=== PATIENT | male | born 1930 | race Hispanic/Latino ===

== ENCOUNTER 2018-02-17 10:22 | Inpatient (IN) | payer OTHER, MEDICARE ==
[2018-02-17] MEDS: MethylPREDNISolone 40 mg Vial IVP SCH (16:30)
[2018-02-17] MEDS: Albuterol-Ipratrop 3 mg / 0.5 (3 ml) UD INH SCH (19:14)
[2018-02-17] MEDS ORDERED: CEFEPIME IV SCH (21:00)
[2018-02-17] MEDS ORDERED: NS IV SCH (21:00)
[2018-02-17] MEDS: Cefepime 1 GM in Sodium Chloride 0.9% 100 ML IVPB SCH (22:34)
[2018-02-18] MEDS: Albuterol-Ipratrop 3 mg / 0.5 (3 ml) UD INH SCH ×4 (01:39→19:08)
[2018-02-18] MEDS: Enoxaparin 40 mg Syringe SC SCH (09:04)
[2018-02-18] MEDS: Cefepime 1 GM in Sodium Chloride 0.9% 100 ML IVPB SCH ×2 (09:05→22:23)
--- NOTE | 2018-02-18 10:45 | CP.PCM.HP ---
History of Present Illness - History of Present Illness History of Present Illness: 87 y/o male with hx of HTN, BPH, COPD presented in ER with c/o of chills, rigor , fever,sputum production and SOB with dyspnea on exertion generalized weakness and malaise. In ER the blood pressure was elevated with systolic of 190, T<102 a CXR reveled an infiltrate. As per home meds list he was on avelox. Patient initially sign AMA. Eventually he accept to be admitted in the hospital for his condition. He well responded to rx. Patient admitted in TCU for further rx and PT. Present on Admission - Present on Admission Any Indicators Present on Admission: No Review of Systems - Constitutional Constitutional: As Per HPI - EENT Eyes: As Per HPI Nose/Mouth/Throat: As Per HPI - Respiratory Respiratory: Cough, Chest Congestion - Gastrointestinal Gastrointestinal: As Per HPI - Musculoskeletal Musculoskeletal: As Per HPI - Neurological Neurological: As Per HPI - Psychiatric Psychiatric: As Per HPI - Endocrine Endocrine: As Per HPI Past Patient History - Past Medical History & Family History Past Medical History?: Yes - Past Social History Smoking Status: Former Smoker - CARDIAC Hx Hypertension: Yes - PULMONARY Hx Pneumonia: Yes - HEMATOLOGICAL/ONCOLOGICAL Hx AIDS: No Hx Human Immunodeficiency Virus (HIV): No - INTEGUMENTARY Other/Comment: melanoma - MUSCULOSKELETAL/RHEUMATOLOGICAL Hx Falls: Yes - GENITOURINARY/GYNECOLOGICAL Hx Prostate Problems: Yes - PSYCHIATRIC Hx Substance Use: No - SURGICAL HISTORY Hx Surgeries: No - ANESTHESIA Hx Anesthesia: No Meds Allergies/Adverse Reactions: Allergies Allergy/AdvReac Type Severity Reaction Status Date / Time No Known Allergies Allergy Verified 02/17/18 10:52 Physical Exam - Constitutional Appears: No Acute Distress - Head Exam Head Exam: ATRAUMATIC, NORMAL INSPECTION, NORMOCEPHALIC - Eye Exam Eye Exam: Normal appearance - ENT Exam ENT Exam: Mucous Membranes Moist - Neck Exam Neck exam: Positive for: Normal Inspection - Respiratory Exam Respiratory Exam: Rhonchi - Cardiovascular Exam Cardiovascular Exam: REGULAR RHYTHM, +S1, +S2 - GI/Abdominal Exam GI & Abdominal Exam: Normal Bowel Sounds, Soft - Back Exam Back exam: NORMAL INSPECTION - Neurological Exam Neurological exam: Alert, CN II-XII Intact, Normal Gait, Oriented x3 - Psychiatric Exam Psychiatric exam: Normal Mood Results - Vital Signs Recent Vital Signs: Last Vital Signs Temp 97.9 F 02/18/18 08:20 Pulse 84 02/18/18 09:44 Resp 20 02/18/18 08:20 BP 136/84 02/18/18 09:44 Pulse Ox 96 02/18/18 09:44 Assessment & Plan (1) Pneumonia Status: Acute (2) BPH (benign prostatic hyperplasia) Status: Chronic (3) COPD (chronic obstructive pulmonary disease) Status: Chronic (4) HTN (hypertension) Status: Chronic (5) Hypertensive cardiovascular disease Status: Chronic - Assessment and Plan (Free Text) Plan: Continue present rx
[2018-02-18] MEDS: MethylPREDNISolone 40 mg Vial IVP SCH (16:00)
[2018-02-19] MEDS: Albuterol-Ipratrop 3 mg / 0.5 (3 ml) UD INH SCH ×4 (01:00→19:33)
[2018-02-19 07:05] LABS: BLOOD UREA NITROGEN 26 mg/dl (9-20); CALCIUM 8.4 mg/dL (8.4-10.2); GFR AFRICAN-AMERICAN > 60; GFR NON-AFRICAN AMERICAN > 60
[2018-02-19 07:19] LABS: BASO % 0.2 % (0.0-2.0); HEMOGLOBIN 11.8 g/dL (12.0-18.0); MEAN CELL VOLUME 90.3 fl (80.0-94.0); MEAN CORPUSCULAR HEMOGLOBIN 30.3 pg (27.0-31.0); MEAN CORPUSCULAR HGB CONC 33.6 g/dL (33.0-37.0); MEAN PLATELET VOLUME 9.5 fl (7.2-11.7); MONO # 0.5 K/uL (0.0-0.8); MONO % 6.6 % (0.0-10.0); NEUT # 6.5 K/uL (1.8-7.0); NEUT % 80.2 % (50.0-75.0); RBC 3.88 Mil/uL (4.40-5.90); RED CELL DISTRIBUTION WIDTH 13.3 % (11.5-14.5); WHITE BLOOD COUNT 8.1 K/uL (4.8-10.8)
[2018-02-19] MEDS: Enoxaparin 40 mg Syringe SC SCH (09:20)
[2018-02-19] MEDS: Cefepime 1 GM in Sodium Chloride 0.9% 100 ML IVPB SCH ×2 (09:58→21:12)
--- NOTE | 2018-02-19 13:22 | CP.PCM.PN ---
Subjective - Date & Time of Evaluation Date of Evaluation: 02/19/18 Time of Evaluation: 13:22 - Subjective Subjective: Comfortable not in distress Objective - Vital Signs/Intake and Output Vital Signs (last 24 hours): Temp Pulse Resp BP Pulse Ox 97.5 F L 89 18 162/80 H 97 02/19/18 10:00 02/19/18 10:00 02/19/18 10:00 02/19/18 10:00 02/19/18 10:00 - Medications Medications: Current Medications Acetaminophen (Tylenol 325mg Tab) 650 mg PO Q6 PRN PRN Reason: Fever >100.4 F Albuterol/Ipratropium (Duoneb 3 Mg/0.5 Mg (3 Ml) Ud) 3 ml INH RQ6 [facility] Last Admin: 02/19/18 13:18 Dose: 3 ml Amlodipine Besylate (Norvasc) 2.5 mg PO DAILY [facility] Last Admin: 02/19/18 09:21 Dose: 2.5 mg Docusate Sodium (Colace) 100 mg PO BID [facility] Last Admin: 02/19/18 09:21 Dose: 100 mg Enoxaparin Sodium (Lovenox) 40 mg SC DAILY [facility] PRN Reason: Protocol Last Admin: 02/19/18 09:20 Dose: 40 mg Folic Acid (Folic Acid) 1 mg PO DAILY [facility] Last Admin: 02/19/18 09:20 Dose: 1 mg Cefepime HCl 1 gm/ Sodium (Chloride) 100 mls @ 100 mls/hr IVPB Q12 [facility] Last Admin: 02/19/18 09:58 Dose: 100 mls/hr Methylprednisolone (Solu-Medrol) 40 mg IVP Q24H [facility] Last Admin: 02/18/18 16:00 Dose: 40 mg Tamsulosin HCl (Flomax) 0.4 mg PO HS [facility] Last Admin: 02/18/18 22:23 Dose: 0.4 mg - Labs Labs: 02/19/18 06:00 02/19/18 06:00 - Constitutional Appears: No Acute Distress - Head Exam Head Exam: ATRAUMATIC, NORMAL INSPECTION, NORMOCEPHALIC - Eye Exam Eye Exam: Normal appearance - Neck Exam Neck Exam: Full ROM - Respiratory Exam Respiratory Exam: Clear to Ausculation Bilateral - Cardiovascular Exam Cardiovascular Exam: REGULAR RHYTHM, +S1, +S2 - GI/Abdominal Exam GI & Abdominal Exam: Soft, Normal Bowel Sounds - Extremities Exam Extremities Exam: Full ROM - Neurological Exam Neurological Exam: Alert, Awake, CN II-XII Intact, Oriented x3 - Psychiatric Exam Psychiatric exam: Normal Affect Assessment and Plan (1) Pneumonia Status: Acute (2) BPH (benign prostatic hyperplasia) Status: Chronic (3) COPD (chronic obstructive pulmonary disease) Status: Chronic (4) HTN (hypertension) Status: Chronic (5) Hypertensive cardiovascular disease Status: Chronic - Assessment and Plan (Free Text) Plan: Continue present rx
[2018-02-19 20:38] LABS: ALBUMIN 2.8 g/dL (3.5-5.0); BILIRUBIN,DIRECT 0.3 mg/ml (0.0-0.4)
[2018-02-20] MEDS: Albuterol-Ipratrop 3 mg / 0.5 (3 ml) UD INH SCH ×4 (01:08→19:48)
[2018-02-20] MEDS ORDERED: predniSONE 5 mg/5 mL Oral Soln UD PO SCH (09:00)
[2018-02-20] MEDS: Enoxaparin 40 mg Syringe SC SCH (09:14)
[2018-02-20] MEDS: Cefepime 1 GM in Sodium Chloride 0.9% 100 ML IVPB SCH ×2 (09:46→21:56)
--- NOTE | 2018-02-20 14:48 | CARD ---
APPROVED REPORT EKG Measurement Heart [id number] DC [id number] <Conclusion> Sinus rhythm with premature atrial complexes Otherwise normal ECG
--- NOTE | 2018-02-20 15:03 | CP.PCM.PN ---
Subjective - Date & Time of Evaluation Date of Evaluation: 02/20/18 Time of Evaluation: 15:03 - Subjective Subjective: Patient comfortable. Had an episode of tachycardia on exertion. Will repeat CXR and labs in AM Objective - Vital Signs/Intake and Output Vital Signs (last 24 hours): Temp Pulse Resp BP Pulse Ox 97.0 F L 92 H 18 143/75 99 02/20/18 08:06 02/20/18 09:14 02/20/18 08:06 02/20/18 09:14 02/20/18 08:06 - Medications Medications: Current Medications Acetaminophen (Tylenol 325mg Tab) 650 mg PO Q6 PRN PRN Reason: Fever >100.4 F Albuterol/Ipratropium (Duoneb 3 Mg/0.5 Mg (3 Ml) Ud) 3 ml INH RQ6 [facility] Last Admin: 02/20/18 13:20 Dose: 3 ml Amlodipine Besylate (Norvasc) 2.5 mg PO DAILY [facility] Last Admin: 02/20/18 09:14 Dose: 2.5 mg Docusate Sodium (Colace) 100 mg PO BID [facility] Last Admin: 02/20/18 09:13 Dose: 100 mg Enoxaparin Sodium (Lovenox) 40 mg SC DAILY [facility] PRN Reason: Protocol Last Admin: 02/20/18 09:14 Dose: 40 mg Folic Acid (Folic Acid) 1 mg PO DAILY [facility] Last Admin: 02/20/18 09:13 Dose: 1 mg Cefepime HCl 1 gm/ Sodium (Chloride) 100 mls @ 100 mls/hr IVPB Q12 [facility] Last Admin: 02/20/18 09:46 Dose: 100 mls/hr Lactobacillus Acidophilus (Bacid Acidophilus) 1 cap PO BID [facility] Prednisone (Prednisone Tab) 20 mg PO DAILY [facility] Tamsulosin HCl (Flomax) 0.4 mg PO HS [facility] Last Admin: 02/19/18 21:12 Dose: 0.4 mg - Labs Labs: 02/19/18 06:00 02/19/18 06:00 - Constitutional Appears: Non-toxic - Head Exam Head Exam: ATRAUMATIC, NORMAL INSPECTION, NORMOCEPHALIC - Eye Exam Eye Exam: Normal appearance - ENT Exam ENT Exam: Mucous Membranes Moist - Neck Exam Neck Exam: Full ROM - Respiratory Exam Respiratory Exam: Clear to Ausculation Bilateral - Cardiovascular Exam Cardiovascular Exam: REGULAR RHYTHM, +S1, +S2 - GI/Abdominal Exam GI & Abdominal Exam: Soft, Normal Bowel Sounds - Extremities Exam Extremities Exam: Normal Inspection - Neurological Exam Neurological Exam: Alert, Awake, Oriented x3 - Psychiatric Exam Psychiatric exam: Normal Affect - Skin Skin Exam: Normal Color Assessment and Plan (1) Pneumonia Status: Acute (2) BPH (benign prostatic hyperplasia) Status: Chronic (3) COPD (chronic obstructive pulmonary disease) Status: Chronic (4) HTN (hypertension) Status: Chronic (5) Hypertensive cardiovascular disease Status: Chronic - Assessment and Plan (Free Text) Plan: Continue present rx.
[2018-02-20] MEDS: Lactobacillus Acidophilus 500 MU Cap PO SCH (16:34)
[2018-02-20 17:05] VITALS: RESP 20
[2018-02-21] MEDS: Albuterol-Ipratrop 3 mg / 0.5 (3 ml) UD INH SCH ×4 (01:10→19:23)
[2018-02-21 06:38] LABS: BASO % 0.1 % (0.0-2.0); EOS # 0.1 K/uL (0.0-0.7); EOS % 1.6 % (0.0-4.0); HEMOGLOBIN 11.4 g/dL (12.0-18.0); LYMPH % 26.2 % (20.0-40.0); MEAN CELL VOLUME 90.8 fl (80.0-94.0); MEAN CORPUSCULAR HEMOGLOBIN 30.6 pg (27.0-31.0); MEAN CORPUSCULAR HGB CONC 33.7 g/dL (33.0-37.0); MEAN PLATELET VOLUME 8.8 fl (7.2-11.7); MONO # 0.6 K/uL (0.0-0.8); MONO % 8.4 % (0.0-10.0); NEUT # 4.8 K/uL (1.8-7.0); NEUT % 63.7 % (50.0-75.0); RBC 3.72 Mil/uL (4.40-5.90); RED CELL DISTRIBUTION WIDTH 13.2 % (11.5-14.5); WHITE BLOOD COUNT 7.6 K/uL (4.8-10.8)
[2018-02-21 07:25] LABS: BLOOD UREA NITROGEN 22 mg/dl (9-20); CALCIUM 8.1 mg/dL (8.4-10.2); GFR AFRICAN-AMERICAN > 60; GFR NON-AFRICAN AMERICAN > 60
[2018-02-21] MEDS: Enoxaparin 40 mg Syringe SC SCH (08:08)
[2018-02-21] MEDS: Lactobacillus Acidophilus 500 MU Cap PO SCH ×2 (08:09→17:10)
[2018-02-21] MEDS: Cefepime 1 GM in Sodium Chloride 0.9% 100 ML IVPB SCH ×2 (11:12→21:04)
--- NOTE | 2018-02-21 12:41 | RAD ---
HISTORY: f/u pneumonia COMPARISON: No prior. TECHNIQUE: Chest PA and lateral FINDINGS: LUNGS: Patchy airspace disease or atelectasis is identified cephalad to the minor fissure laterally with limited linear atelectasis or fibrosis identified in the left base. Flattened hemidiaphragms and increased anteroposterior chest diameter may indicate an element of COPD. Clinically correlate further. PLEURA: Blunting of the right costophrenic sulcus and obscuring at the left may indicate small bilateral pleural effusions or fibrosis. No prior comparison available. CARDIOVASCULAR: Questionable cardiomegaly versus technical magnification. No pulmonary vascular derangement to suggest active CHF. OSSEOUS STRUCTURES: A kyphotic thoracic spinal deformity appreciated due to multiple mild mid to inferior thoracic spine compression fractures which are of indeterminate age but may be chronic. VISUALIZED UPPER ABDOMEN: Normal. OTHER FINDINGS: None. IMPRESSION: Trace infiltrate or atelectasis is seen in at the right upper lobe abutting the minor fissure with limited bilateral pleural effusions or fibrosis blunting the costophrenic sulci bilaterally. Potential COPD as well.
[2018-02-22] MEDS: Albuterol-Ipratrop 3 mg / 0.5 (3 ml) UD INH SCH ×4 (01:00→19:23)
[2018-02-22] MEDS: Enoxaparin 40 mg Syringe SC SCH (08:25)
[2018-02-22] MEDS: Lactobacillus Acidophilus 500 MU Cap PO SCH ×2 (08:28→16:28)
[2018-02-22] MEDS: Cefepime 1 GM in Sodium Chloride 0.9% 100 ML IVPB SCH ×2 (08:29→20:48)
--- NOTE | 2018-02-22 17:28 | CP.PCM.PN ---
Subjective - Date & Time of Evaluation Date of Evaluation: 02/22/18 Time of Evaluation: 12:00 - Subjective Subjective: Patient seen and examined at bedside. Seen by hospitalist at request of Dr. Acevedo. States that he feels well. No further issues with shortness of breath with exertion. Objective - Vital Signs/Intake and Output Vital Signs (last 24 hours): Temp Pulse Resp BP Pulse Ox 97.2 F L 86 20 131/69 99 02/22/18 16:29 02/22/18 16:29 02/22/18 16:29 02/22/18 16:29 02/22/18 16:29 - Medications Medications: Current Medications Acetaminophen (Tylenol 325mg Tab) 650 mg PO Q6 PRN PRN Reason: Fever >100.4 F Albuterol/Ipratropium (Duoneb 3 Mg/0.5 Mg (3 Ml) Ud) 3 ml INH RQ6 [facility] Last Admin: 02/22/18 13:25 Dose: 3 ml Amlodipine Besylate (Norvasc) 2.5 mg PO DAILY [facility] Last Admin: 02/22/18 08:26 Dose: 2.5 mg Docusate Sodium (Colace) 100 mg PO BID [facility] Last Admin: 02/22/18 16:29 Dose: 100 mg Enoxaparin Sodium (Lovenox) 40 mg SC DAILY [facility] PRN Reason: Protocol Last Admin: 02/22/18 08:25 Dose: 40 mg Folic Acid (Folic Acid) 1 mg PO DAILY [facility] Last Admin: 02/22/18 08:26 Dose: 1 mg Cefepime HCl 1 gm/ Sodium (Chloride) 100 mls @ 100 mls/hr IVPB Q12 [facility] Last Admin: 02/22/18 08:29 Dose: 100 mls/hr Lactobacillus Acidophilus (Bacid Acidophilus) 1 cap PO BID [facility] Last Admin: 02/22/18 16:28 Dose: 1 cap Prednisone (Prednisone Tab) 10 mg PO DAILY [facility] Last Admin: 02/22/18 08:26 Dose: 10 mg Tamsulosin HCl (Flomax) 0.4 mg PO HS [facility] Last Admin: 02/21/18 21:04 Dose: 0.4 mg - Labs Labs: 02/21/18 05:50 02/21/18 05:50 - Additional Findings Additional findings: Physical exam: Constitutional- cooperative, awake, alert Head- NCAT, PERRL Eye- PERRL, EOMI ENT- normal exam, MMM. Neck- normal inspection, supple, no JVD Respiratory- CTAB, no wheezes rales rhonchi Cardiovascular- RRR, +S1, +S2 no MRG GI/Abdominal- normal bowel sounds, soft, no mass, no hsm Skin- warm, dry Extremities Exam- normal capillary refill, normal inspection Neurological Exam- alert, awake, oriented Psych- normal mood, normal affect Assessment and Plan - Assessment and Plan (Free Text) Plan: Assessment and Plan (1) Pneumonia Status: Acute Continue PT/OT in TCU Total 14 days of Cefepime Bacid for C diff prophylaxis (2) BPH (benign prostatic hyperplasia) Status: Chronic - Continue Flomax 0.4 mg po HS (3) COPD (chronic obstructive pulmonary disease) Status: Chronic - Incentive spirometer; noted trace atelectasis on CXR - Continue Prednisone 10 mg po daily - Duoneba q6h (4) HTN (hypertension) Status: Chronic - Continue Norvasc 2.5 mg po daily (5) Hypertensive cardiovascular disease Status: Chronic (6) DVT prophylaxis - sq Lovenox
[2018-02-23] MEDS: Albuterol-Ipratrop 3 mg / 0.5 (3 ml) UD INH SCH ×4 (01:24→20:14)
[2018-02-23] MEDS: Enoxaparin 40 mg Syringe SC SCH (08:32)
[2018-02-23] MEDS: Lactobacillus Acidophilus 500 MU Cap PO SCH ×2 (08:33→17:51)
[2018-02-23] MEDS: Cefepime 1 GM in Sodium Chloride 0.9% 100 ML IVPB SCH ×2 (08:34→23:22)
[2018-02-24] MEDS: Albuterol-Ipratrop 3 mg / 0.5 (3 ml) UD INH SCH ×4 (01:04→19:48)
[2018-02-24] MEDS: Cefepime 1 GM in Sodium Chloride 0.9% 100 ML IVPB SCH ×2 (09:07→20:22)
[2018-02-24] MEDS: Lactobacillus Acidophilus 500 MU Cap PO SCH ×2 (09:09→16:59)
[2018-02-24] MEDS: Enoxaparin 40 mg Syringe SC SCH (09:10)
[2018-02-25] MEDS: Albuterol-Ipratrop 3 mg / 0.5 (3 ml) UD INH SCH ×4 (01:00→19:55)
[2018-02-25] MEDS: Enoxaparin 40 mg Syringe SC SCH (09:02)
[2018-02-25] MEDS: Lactobacillus Acidophilus 500 MU Cap PO SCH ×2 (09:02→17:30)
[2018-02-25] MEDS: Cefepime 1 GM in Sodium Chloride 0.9% 100 ML IVPB SCH ×2 (09:07→20:27)
[2018-02-26] MEDS: Albuterol-Ipratrop 3 mg / 0.5 (3 ml) UD INH SCH ×4 (01:06→19:31)
[2018-02-26] MEDS: Lactobacillus Acidophilus 500 MU Cap PO SCH ×2 (08:00→17:02)
[2018-02-26] MEDS: Enoxaparin 40 mg Syringe SC SCH (08:00)
[2018-02-26] MEDS: Cefepime 1 GM in Sodium Chloride 0.9% 100 ML IVPB SCH ×2 (08:00→21:36)
[2018-02-26 11:43] LABS: BASO % 0.4 % (0.0-2.0); EOS % 0.2 % (0.0-4.0); HEMOGLOBIN 11.7 g/dL (12.0-18.0); LYMPH # 0.7 K/uL (1.0-4.3); LYMPH % 10.5 % (20.0-40.0); MEAN CELL VOLUME 92.3 fl (80.0-94.0); MEAN CORPUSCULAR HEMOGLOBIN 30.2 pg (27.0-31.0); MEAN CORPUSCULAR HGB CONC 32.8 g/dL (33.0-37.0); MEAN PLATELET VOLUME 9.4 fl (7.2-11.7); MONO # 0.3 K/uL (0.0-0.8); MONO % 5.4 % (0.0-10.0); NEUT # 5.2 K/uL (1.8-7.0); NEUT % 83.5 % (50.0-75.0); RBC 3.87 Mil/uL (4.40-5.90); RED CELL DISTRIBUTION WIDTH 13.2 % (11.5-14.5); WHITE BLOOD COUNT 6.2 K/uL (4.8-10.8)
[2018-02-26 11:59] LABS: ALB/GLOB RATIO 1.1 (1.0-2.1); ALBUMIN 3.5 g/dL (3.5-5.0); ALT/SGPT 68 U/L (21-72); AST/SGOT 29 U/L (17-59); BILIRUBIN,DIRECT 0.3 mg/ml (0.0-0.4); BLOOD UREA NITROGEN 19 mg/dl (9-20); CALCIUM 8.8 mg/dL (8.4-10.2); GFR AFRICAN-AMERICAN > 60; GFR NON-AFRICAN AMERICAN > 60
--- NOTE | 2018-02-26 13:19 | CP.PCM.PN ---
Subjective - Date & Time of Evaluation Date of Evaluation: 02/26/18 Time of Evaluation: 13:19 - Subjective Subjective: Patient in good spirit improving well on present rx. Objective - Vital Signs/Intake and Output Vital Signs (last 24 hours): Temp Pulse Resp BP Pulse Ox 97.2 F L 76 20 141/83 94 L 02/26/18 08:06 02/26/18 08:06 02/26/18 08:06 02/26/18 08:06 02/26/18 08:06 - Medications Medications: Current Medications Acetaminophen (Tylenol 325mg Tab) 650 mg PO Q6 PRN PRN Reason: Fever >100.4 F Albuterol/Ipratropium (Duoneb 3 Mg/0.5 Mg (3 Ml) Ud) 3 ml INH RQ6 [facility] Last Admin: 02/26/18 08:31 Dose: 3 ml Amlodipine Besylate (Norvasc) 2.5 mg PO DAILY [facility] Last Admin: 02/26/18 07:59 Dose: 2.5 mg Docusate Sodium (Colace) 100 mg PO BID [facility] Last Admin: 02/26/18 08:00 Dose: 100 mg Enoxaparin Sodium (Lovenox) 40 mg SC DAILY [facility] PRN Reason: Protocol Last Admin: 02/26/18 08:00 Dose: 40 mg Folic Acid (Folic Acid) 1 mg PO DAILY [facility] Last Admin: 02/26/18 08:00 Dose: 1 mg Cefepime HCl 1 gm/ Sodium (Chloride) 100 mls @ 100 mls/hr IVPB Q12 [facility] Last Admin: 02/26/18 08:00 Dose: 100 mls/hr Lactobacillus Acidophilus (Bacid Acidophilus) 1 cap PO BID [facility] Last Admin: 02/26/18 08:00 Dose: 1 cap Prednisone (Prednisone Tab) 10 mg PO DAILY [facility] Last Admin: 02/26/18 07:59 Dose: 10 mg Tamsulosin HCl (Flomax) 0.4 mg PO HS [facility] Last Admin: 02/25/18 21:01 Dose: 0.4 mg - Labs Labs: 02/26/18 11:37 02/26/18 11:37 - Constitutional Appears: Non-toxic, No Acute Distress - Head Exam Head Exam: ATRAUMATIC, NORMAL INSPECTION, NORMOCEPHALIC - Eye Exam Eye Exam: Normal appearance - ENT Exam ENT Exam: Mucous Membranes Moist - Neck Exam Neck Exam: Full ROM - Respiratory Exam Respiratory Exam: Clear to Ausculation Bilateral - Cardiovascular Exam Cardiovascular Exam: REGULAR RHYTHM, +S1, +S2 - GI/Abdominal Exam GI & Abdominal Exam: Soft, Normal Bowel Sounds - Back Exam Back Exam: NORMAL INSPECTION - Neurological Exam Neurological Exam: Alert, Awake, CN II-XII Intact, Oriented x3 - Psychiatric Exam Psychiatric exam: Normal Affect - Skin Skin Exam: Normal Color Assessment and Plan (1) Pneumonia Status: Acute (2) BPH (benign prostatic hyperplasia) Status: Chronic (3) COPD (chronic obstructive pulmonary disease) Status: Chronic (4) HTN (hypertension) Status: Chronic (5) Hypertensive cardiovascular disease Status: Chronic - Assessment and Plan (Free Text) Plan: Continue present rx
[2018-02-27] MEDS: Albuterol-Ipratrop 3 mg / 0.5 (3 ml) UD INH SCH ×4 (02:28→19:17)
[2018-02-27] MEDS: Lactobacillus Acidophilus 500 MU Cap PO SCH ×2 (08:02→16:58)
[2018-02-27] MEDS: Enoxaparin 40 mg Syringe SC SCH (08:03)
[2018-02-27] MEDS: Cefepime 1 GM in Sodium Chloride 0.9% 100 ML IVPB SCH (08:04)
--- NOTE | 2018-02-27 15:27 | CP.PCM.PN ---
Subjective - Date & Time of Evaluation Date of Evaluation: 02/27/18 Time of Evaluation: 15:56 - Subjective Subjective: Comfortable Objective - Vital Signs/Intake and Output Vital Signs (last 24 hours): Temp Pulse Resp BP Pulse Ox 97.5 F L 80 20 153/66 H 97 02/27/18 08:00 02/27/18 08:01 02/27/18 08:00 02/27/18 08:01 02/27/18 08:00 - Medications Medications: Current Medications Acetaminophen (Tylenol 325mg Tab) 650 mg PO Q6 [facility] PRN Reason: Fever >100.4 F Albuterol/Ipratropium (Duoneb 3 Mg/0.5 Mg (3 Ml) Ud) 3 ml INH RQ6 [facility] Last Admin: 02/27/18 13:32 Dose: 3 ml Amlodipine Besylate (Norvasc) 2.5 mg PO DAILY [facility] Last Admin: 02/27/18 08:01 Dose: 2.5 mg Docusate Sodium (Colace) 100 mg PO BID [facility] Last Admin: 02/27/18 08:02 Dose: 100 mg Enoxaparin Sodium (Lovenox) 40 mg SC DAILY [facility] PRN Reason: Protocol Last Admin: 02/27/18 08:03 Dose: 40 mg Folic Acid (Folic Acid) 1 mg PO DAILY [facility] Last Admin: 02/27/18 08:03 Dose: 1 mg Cefepime HCl 1 gm/ Sodium (Chloride) 100 mls @ 100 mls/hr IVPB Q12 [facility] Last Admin: 02/27/18 08:04 Dose: 100 mls/hr Lactobacillus Acidophilus (Bacid Acidophilus) 1 cap PO BID [facility] Last Admin: 02/27/18 08:02 Dose: 1 cap Prednisone (Prednisone Tab) 10 mg PO DAILY [facility] Last Admin: 02/27/18 08:03 Dose: 10 mg Tamsulosin HCl (Flomax) 0.4 mg PO HS [facility] Last Admin: 02/26/18 21:36 Dose: 0.4 mg - Labs Labs: 02/26/18 11:37 02/26/18 11:37 - Constitutional Appears: Chronically Ill - Head Exam Head Exam: ATRAUMATIC, NORMAL INSPECTION, NORMOCEPHALIC - Eye Exam Eye Exam: Normal appearance - ENT Exam ENT Exam: Mucous Membranes Moist - Neck Exam Neck Exam: Full ROM - Respiratory Exam Respiratory Exam: Clear to Ausculation Bilateral - Cardiovascular Exam Cardiovascular Exam: REGULAR RHYTHM, +S1, +S2 - GI/Abdominal Exam GI & Abdominal Exam: Soft, Normal Bowel Sounds - Extremities Exam Extremities Exam: Normal Inspection - Neurological Exam Neurological Exam: Alert, Awake, CN II-XII Intact, Oriented x3 - Psychiatric Exam Psychiatric exam: Normal Affect - Skin Skin Exam: Normal Color Assessment and Plan (1) Pneumonia Status: Acute (2) BPH (benign prostatic hyperplasia) Status: Chronic (3) COPD (chronic obstructive pulmonary disease) Status: Chronic (4) HTN (hypertension) Status: Chronic (5) Hypertensive cardiovascular disease Status: Chronic
[2018-02-27 19:45] VITALS: O2SAT 99
[2018-02-28] MEDS: Albuterol-Ipratrop 3 mg / 0.5 (3 ml) UD INH SCH ×2 (01:00→08:12)
[2018-02-28 08:05] VITALS: BP 143/73; PULSE 79; TEMP 97.2
[2018-02-28] MEDS: Lactobacillus Acidophilus 500 MU Cap PO SCH (08:31)
--- NOTE | 2018-02-28 11:39 | CP.PCM.DIS ---
Provider - Provider Date of Admission: 02/17/18 15:20 Attending physician: Ky Acevedo MD Time Spent in preparation of Discharge (in minutes): 30 Diagnosis - Discharge Diagnosis (1) Pneumonia Status: Acute Priority: High (2) BPH (benign prostatic hyperplasia) Status: Chronic (3) COPD (chronic obstructive pulmonary disease) Status: Chronic Priority: Medium (4) HTN (hypertension) Status: Chronic (5) Hypertensive cardiovascular disease Status: Chronic Priority: Medium Hospital Course - Lab Results Lab Results: Most Recent Lab Values WBC 6.2 K/uL (4.8-10.8) 02/26/18 11:37 RBC 3.87 Mil/uL (4.40-5.90) L 02/26/18 11:37 Hgb 11.7 g/dL (12.0-18.0) L 02/26/18 11:37 Hct 35.7 % (35.0-51.0) 02/26/18 11:37 MCV 92.3 fl (80.0-94.0) 02/26/18 11:37 MCH 30.2 pg (27.0-31.0) 02/26/18 11:37 MCHC 32.8 g/dL (33.0-37.0) L 02/26/18 11:37 RDW 13.2 % (11.5-14.5) 02/26/18 11:37 Plt Count 220 K/uL (130-400) 02/26/18 11:37 MPV 9.4 fl (7.2-11.7) 02/26/18 11:37 Neut % (Auto) 83.5 % (50.0-75.0) H 02/26/18 11:37 Lymph % (Auto) 10.5 % (20.0-40.0) L 02/26/18 11:37 [place] % (Auto) 5.4 % (0.0-10.0) 02/26/18 11:37 Eos % (Auto) 0.2 % (0.0-4.0) 02/26/18 11:37 Baso % (Auto) 0.4 % (0.0-2.0) 02/26/18 11:37 Neut # (Auto) 5.2 K/uL (1.8-7.0) 02/26/18 11:37 Lymph # (Auto) 0.7 K/uL (1.0-4.3) L 02/26/18 11:37 [place] # (Auto) 0.3 K/uL (0.0-0.8) 02/26/18 11:37 Eos # (Auto) 0.0 K/uL (0.0-0.7) 02/26/18 11:37 Baso # (Auto) 0.0 K/uL (0.0-0.2) 02/26/18 11:37 Sodium 144 mmol/l (132-148) 02/26/18 11:37 Potassium 4.1 MMOL/L (3.6-5.0) 02/26/18 11:37 Chloride 102 mmol/L (98-107) 02/26/18 11:37 Carbon Dioxide 28 mmol/L (22-30) 02/26/18 11:37 Anion Gap 18 (10-20) 02/26/18 11:37 BUN 19 mg/dl (9-20) 02/26/18 11:37 Creatinine 0.7 mg/dl (0.8-1.5) L 02/26/18 11:37 Est GFR ( Amer) > 60 02/26/18 11:37 Est GFR (Non-Af Amer) > 60 02/26/18 11:37 Random Glucose 125 mg/dL (75-110) H 02/26/18 11:37 Calcium 8.8 mg/dL (8.4-10.2) 02/26/18 11:37 Total Bilirubin 0.4 mg/dl (0.2-1.3) 02/26/18 11:37 Direct Bilirubin 0.3 mg/ml (0.0-0.4) 02/26/18 11:37 AST 29 U/L (17-59) 02/26/18 11:37 ALT 68 U/L (21-72) 02/26/18 11:37 Alkaline Phosphatase 66 U/L (38-126) 02/26/18 11:37 Total Protein 6.7 G/DL (6.3-8.2) 02/26/18 11:37 Albumin 3.5 g/dL (3.5-5.0) D 02/26/18 11:37 Globulin 3.2 gm/dL (2.2-3.9) 02/26/18 11:37 Albumin/Globulin Ratio 1.1 (1.0-2.1) 02/26/18 11:37 - Hospital Course Hospital Course: 87 y/o male with hx of HTN, BPH, COPD presented in ER with c/o of chills, rigor , fever,sputum production and SOB with dyspnea on exertion generalized weakness and malaise. In ER the blood pressure was elevated with systolic of 190, T<102 a CXR reveled an infiltrate. As per home meds list he was on avelox. Patient initially sign AMA. Eventually he accept to be admitted in the hospital for his condition. He well responded to rx. Patient admitted in TCU for further rx and PT.He well responded to rx. DC home will follow as OP. Discharge Exam - Head Exam Head Exam: ATRAUMATIC, NORMAL INSPECTION, NORMOCEPHALIC - Eye Exam Eye Exam: Normal appearance - ENT Exam ENT Exam: Normal External Ear Exam - Respiratory Exam Respiratory Exam: Clear to PA & Lateral - Cardiovascular Exam Cardiovascular Exam: REGULAR RHYTHM, +S1, +S2 - GI/Abdominal Exam GI & Abdominal Exam: Normal Bowel Sounds - Extremities Exam Extremities exam: normal inspection - Neurological Exam Neurological exam: Alert, CN II-XII Intact, Oriented x3, Reflexes Normal - Psychiatric Exam Psychiatric exam: Normal Affect - Skin Skin Exam: Normal Color Discharge Plan - Discharge Medications Prescriptions: Fluticasone/Salmeterol 500/50 [Advair Diskus] 1 dsk IH BID 90 Days #1 puff predniSONE [predniSONE Oral Soln] 5 mg PO DAILY #90 udc - Follow Up Plan Condition: GOOD Disposition: HOME/ ROUTINE
== END 2018-02-28 12:55 | disposition home health service (06) | DRG 194 ==
LOC: H.TCU 15:20
PROVIDERS: ADMIT Internal Medicine; ATTEND Internal Medicine
PROC: 3E03329 Introduction of Other Anti-infective into Peripheral Vein, Percutaneous Approach (ICD-10-PCS; principal; 2018-02-17)
PROC: F07M6FZ Therapeutic Exercise Treatment of Musculoskeletal System - Whole Body using Assistive, Adaptive, Supportive or Protective Equipment (ICD-10-PCS; 2018-02-17)
PROC: 3E0F7GC Introduction of Other Therapeutic Substance into Respiratory Tract, Via Natural or Artificial Opening (ICD-10-PCS; 2018-02-17)
DX: J18.9 Pneumonia, unspecified organism (principal); J44.0 Chronic obstructive pulmonary disease with (acute) lower respiratory infection; N40.0 Benign prostatic hyperplasia without lower urinary tract symptoms; Z79.899 Other long term (current) drug therapy; Z87.01 Personal history of pneumonia (recurrent); Z87.891 Personal history of nicotine dependence; R00.0 Tachycardia, unspecified; Z85.820 Personal history of malignant melanoma of skin; I11.9 Hypertensive heart disease without heart failure